=== PATIENT | male | born 1990 | race Caucasian/White ===

== ENCOUNTER 2025-08-18 12:26 | Emergency (ER) | payer BC ==
[2025-08-18] MEDS ORDERED: Ondansetron PF 4 MG/2 ML Vial ONE (13:36)
[2025-08-18] MEDS ORDERED: Acetaminophen 500 MG TAB ONE (13:36)
[2025-08-18 14:55] LABS: #Basophils 0.05 10x3/uL (0.0-0.2); #Eosinophils Less than 0.03 10x3/uL (0.0-0.5); #Monocytes 0.79 10x3/uL (0.0-1.1); #Neutrophils 10.98 10x3/uL (1.5-8.4); %Basophils 0.4 % (0.0-2.0); %Eosinophils 0.2 % (0.0-6.0); %Lymphocytes 6.4 % (18.0-47.0); %Monocytes 6.2 % (0.0-10.0); %Neutrophils 86.2 % (40.0-75.0); Hematocrit 46.5 % (38.8-50.0); Hemoglobin 16.2 g/dL (13.5-17.5); Mean Corpuscular Hemoglobin 30.0 pg (27.0-33.0); Mean Corpuscular Volume 86.1 fL (81.2-95.1); Platelet Count 337 10x3/uL (150-450); Red Blood Cell (RBC) Count 5.40 10x6/uL (4.32-5.72); White Blood Cell (WBC) Count 12.72 10x3/uL (3.5-10.5)
[2025-08-18 15:12] LABS: ALT (SGPT) 14 U/L (Less than 45); AST (SGOT) 18 U/L (11-34); Albumin 5.3 g/dL (3.1-4.5); Alkaline Phosphatase 41 U/L (40-110); Anion Gap 13 mmol/L (10-20); BUN (Urea Nitrogen) 15 mg/dL (8.9-20.6); Bilirubin, Total 1.1 mg/dL (0.3-1.2); Calc. Creatinine Clearance 0 mL/min (70-130); Calcium 10.6 mg/dL (7.8-10.44); Carbon Dioxide 27 mmol/L (22-29); Chloride 103 mmol/L (98-107); Globulin 2.8 g/dL (2.4-3.5); Glucose 77 mg/dL (70-105); Potassium 4.3 mmol/L (3.5-5.1); Sodium 139 mmol/L (136-145)
[2025-08-18 15:16] LABS: Troponin I Less than 0.010 ng/mL (< 0.028)
[2025-08-18] MEDS ORDERED: Ketorolac Tromethamine 30 MG (1 mL) VIAL ONE (15:58)
== END 2025-08-18 16:12 | disposition home or self-care (01) ==
LOC: CSHERS 12:26
DX: R55 Syncope and collapse (principal); E86.0 Dehydration
CPT/HCPCS: 36416; 70450; 80053; 84484; 85025; 93005; 96374; 96375; J1885